=== PATIENT | male | born 1960 | race Asian ===

== ENCOUNTER 2023-02-02 17:38 | Emergency (ER) | payer OTHER ==
[~2023-02-02] VITALS: Ht 165.1 cm; Wt 117.9 kg
[2023-02-02 18:06] LABS: PLATELET COUNT 242 K/uL (142-355)
[2023-02-02 18:20] LABS: POTASSIUM 3.9 mmol/L (3.6-5.2)
[2023-02-02 19:52] VITALS: BP 145/85; TEMP 97.9
== END 2023-02-02 19:52 | disposition home or self-care (01) ==
LOC: ED 17:38
PROVIDERS: Family Medicine
DX: E11.65 Type 2 diabetes mellitus with hyperglycemia (principal); Z79.4 Long term (current) use of insulin; E86.0 Dehydration; B37.89 Other sites of candidiasis
CPT/HCPCS: 36600; 80053; 80307; 81002; 82805; 85027; 96374; 99284; J1815